=== PATIENT | female | born 1995 | race Caucasian/White ===

== ENCOUNTER 2016-09-01 13:12 | Inpatient (IN) | payer OTHER ==
[~2016-09-01] VITALS: Ht 154.9 cm; Wt 86.2 kg
[~2016-09-01 13:12] MED LIST: ALPRAZOLAM0.25 M1 PO; SERTRALINE HCL100 MG PO
--- NOTE | 2016-09-01 13:19 | NUR ---
PT TO ED C/O FEELING SUICIDAL RECENTLY. STATES PLAN WOULD BE TO TAKE A LOT OF PILLS. HOWEVER, PT STATES SHE DOESNT' HAVE ACCESS TO PILLS. DENIES HI. DENIES ETOH OR DRUGS. CALM/COOPERATIVE/TEARFUL. STATES SHE WAS HERE IN JUNE 2016 FOR THE SAME THING. PT TAKEN TO ROOM 13 BY MST.
--- NOTE | 2016-09-01 13:25 | ED PSYCHIATRIC COMPLAINT ---
History of Present Illness General Chief Complaint: Psychiatric Related Complaint Stated Complaint: + SI Source: patient, old records Exam Limitations: no limitations Vital Signs & Intake/Output Vital Signs & Intake/Output Vital Signs Date Time Temp Pulse Resp B/P Pulse O2 O2 Flow FiO2 Ox Delivery Rate 09/02 1944 98.3 92 134/71 09/02 1318 97.5 88 16 121/61 94 Room Air 09/02 1034 99.1 96 18 139/84 97 Room Air 09/02 0653 98.2 108 20 125/68 97 Room Air 09/01 2118 72 16 130/80 99 Room Air ED Intake and Output 09/02 0000 09/01 1200 Intake Total Output Total Balance Patient 190 lb Weight Allergies Coded Allergies: No Known Allergies (06/30/16) Triage Note: PT TO ED C/O FEELING SUICIDAL RECENTLY. STATES PLAN WOULD BE TO TAKE A LOT OF PILLS. HOWEVER, PT STATES SHE DOESNT' HAVE ACCESS TO PILLS. DENIES HI. DENIES ETOH OR DRUGS. CALM/COOPERATIVE/TEARFUL. STATES SHE WAS HERE IN JUNE 2016 FOR THE SAME THING. PT TAKEN TO ROOM 13 BY MST. Triage Nurses Notes Reviewed? yes Onset: Gradual Duration: 2 months Timing: recent history Severity: severe Associated Symptoms: anxiety, suicidal ideation : No Patient currently breastfeeds: No HPI: 20 year old female who presents to the ER for chief complaint of anxiety, worsening depression for the past several months. She has been on multiple different medications outpatient and has recently completed IOP which she states did not really help her. This morning she got very afraid because she had a plan to hurt herself. Plans included either overdosing on medications or putting herself in the car and turning and on and just staying in the garage. She states she's never had a specific plan with which to hurt herself. (GORDON HERNANDEZ,JENNIFER) Reconcile Medications [AVAINE] CONTROL (Reported) Cariprazine HCl (Vraylar) 1.5 MG CAPSULE 1.5 MG PO QPM DEPRESSION (Reported) Cholecalciferol (Vitamin D3) 1,000 UNIT TABLET 1 TAB PO BID SUPPLEMENT ( Reported) Citalopram Hydrobromide (Citalopram HBr) 20 MG TABLET 1 TAB PO DAILY MENTAL HEALTH (Reported) Cyanocobalamin (Vitamin B-12) 1,000 MCG TABLET 1 TAB PO DAILY SUPPLEMENT ( Reported) Ferrous Sulfate (High Potency Iron) 134 MG (27 MG) TABLET 1 TAB PO SUPPLEMENT (Reported) Gabapentin 600 MG TABLET 1 TAB PO AD UNKNOWN (Reported) Levonorgestrel-Ethin Estradiol (Aviane-28 Tablet) 0.1 MG-20 MCG TABLET 1 TAB PO DAILY BC (Reported) (BRITTANY ZHENG DO) Past History Travel History Traveled to [place] past 21 day No Medical History Any Pertinent Medical History? 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 No (JENNIFER LEYVA MD) Review of Systems Review of Systems Constitutional: Denies: chills, fever. EENTM: Reports: no symptoms. Respiratory: Denies: short of breath. Cardiovascular: Denies: chest pain. GI: Reports: no symptoms. Genitourinary: Reports: no symptoms. Musculoskeletal: Reports: no symptoms. Skin: Reports: no symptoms. Neurological/Psychological: Reports: ataxia, dementia, emotional problems. Hematologic/Endocrine: Reports: no symptoms. Immunologic/Allergic: Reports: no symptoms. All Other Systems: Reviewed and Negative (JENNIFER LEYVA MD) Physical Exam Physical Exam General Appearance: well developed/nourished, alert, awake, anxious, mild distress Head: atraumatic Eyes: Bilateral: PERRL, EOMI. Ears, Nose, Throat: normal pharynx, normal ENT inspection, hearing grossly normal Neck: normal inspection, supple Respiratory: normal breath sounds Cardiovascular: regular rate/rhythm Gastrointestinal: soft, non-tender Extremities: normal range of motion Neurological/Psychiatric: awake, agitated, anxious, tearful, depressed affect Appearance/Memory/Insight: appropriate appearance, appropriate insight Behavoir/Eye Contact/Speech: cooperative, normal speech, good eye contact Thoughts/Hallucinations: no apparent hallucination Skin: intact, normal color, warm/dry SAD PERSONS SAD PERSONS Response Value Depression/Hopelessness? yes 2 Social Support? has support 0 Total 2 SAD PERSONS Done? yes (GORDON HERNANDEZ,JENNIFER) Progress Differential Diagnosis: anxiety, depression, suicidal ideation Plan of Care: Orders Procedure Date/time Status Regular Diet 09/02 L Active Regular Diet 09/02 B Complete Vital Signs 09/02 1452 Active Inpt Psych Teach/Educate 09/02 1452 Active Nutritional Intake, Monitor 09/02 1452 Active Inpt Psych Auricular Acupunctu 09/02 1452 Active Patient Data - inpatient psych 09/02 1043 Active Admit to inpatient psych 09/02 1043 Active Admit to inpatient psych 09/02 1011 Active Continuous Observation Monitor 09/02 0925 Complete Change service to 09/02 UNK Active Vital Signs 09/02 UNK Complete Activity/Ambulation 09/02 UNK Active MISSING MEDICATION FORM 09/02 UNK Active Intake & Output 09/01 1409 Complete Current Medications Sig/Antolin Start time Last Medication Dose Stop Time Status Admin Ferrous Sulfate 325 MG DAILY 09/03 1000 AC (Feosol) Gabapentin 200 MG Q2P PRN 09/02 1115 AC (Neurontin) Aripiprazole 5 MG DAILY 09/02 1110 AC (Abilify) Diagnostic Imaging: Viewed by Me: CT Scan. Discussed w/RAD: CT Scan. Radiology Impression: PATIENT: ROGELIO FLORES PRESENT AGE: 20 PATIENT ACCOUNT NO: [id number] : 94 LOCATION: [facility] ORDERING PHYSICIAN: JENNIFER LEYVA MD SERVICE DATE: 09/01/16-1436 EXAM TYPE: CAT - CT HEAD WO IV CONTRAST EXAMINATION: CT HEAD WITHOUT CONTRAST CLINICAL INFORMATION: Sudden onset extreme depression and anxiety COMPARISON: None TECHNIQUE: Contiguous axial imaging was performed from the skull base to vertex without intravenous administration of contrast. DLP: 529.16 mGy-cm FINDINGS: There is no evidence of acute intracranial hemorrhage or territorial infarction. No abnormal mass effect or midline shift is seen. Lake to white matter differentiation is well preserved. No extra-axial fluid collections are identified. The ventricles are normal in size. There is no abnormal attenuation within the brain parenchyma. The osseous structures and soft tissues are normal. The mastoid air cells and visualized portions of the paranasal sinuses are well aerated. IMPRESSION: No acute intracranial pathology. DICTATED BY: BERNARD WELLS MD DATE/TIME DICTATED:09/01/161529 NEGATIVE CUTTER:FABIAN DATE/TIME TRANSCRIBED:09/01/16 / 1529 CONFIDENTIAL, DO NOT COPY WITHOUT APPROPRIATE AUTHORIZATION. <Electronically signed in Other Vendor System> SIGNED BY: BERNARD WELLS MD 09/01/161535 Hand-Off Endorsed To: LINDA OTERO MD Endorsed Time: 1922 Pending: consult (CRISIS ADMISSION) (JENNIFER LEYVA MD) Hand-Off Endorsed To: BRITTANY ZHENG DO Endorsed Time: 07 Pending: consult (LINDA OTERO MD) Departure Departure Disposition: STILL A PATIENT Condition: Stable Clinical Impression Primary Impression: Anxiety Secondary Impressions: Suicidal ideation Referrals: ABHIJEET HENRANDEZ,DANIELLE Fox (PCP/Family) Departure Forms: Customer Survey General Discharge Information (JENNIFER LEYVA MD) Departure Comments 09/02/16 The patient was signed out to me by Dr. Otero. She was admitted to Inpatient Psychiatry for depression. Psych Admission Note Psychiatric Admission: I have seen and evaluated ROGELIO FLORES. I have also reviewed all the pertinent lab results and diagnostic results. ROGELIO FLORES will be admitted to our inpatient Psychiatric unit for treatment and care. (BRITTANY ZHENG DO)
--- NOTE | 2016-09-01 13:43 | NUR ---
URINE TRIO SENT TO LAB
--- NOTE | 2016-09-01 14:13 | NUR ---
ALERT, TEARY, WHEN QUESTIONED, STATES SHE IS UNDER A LOT OF STRESS AT SCHOOL, GRADUATES IN NOVEMBER, BUT IS FEELING TOO DEPRESSED TO DO HER SCHOOLWORK. HAS BEEN ON DIFFERENT ANT-DEPRESSANTS AND WAS SEEING ESTIVEN BARONE APRN ([facility]) AND WAS DC'D ON 08/15. STATES SHE HAS FRIENDS AT SCHOOL AND HAS A SUPPORTIVE FAMILY.
[2016-09-01] MEDS ORDERED: VRAYLAR1.5 MG PO (14:54)
[2016-09-01] MEDS ORDERED: CITALOPRAM HBR20 MG PO (14:54)
[2016-09-01] MEDS ORDERED: VITAMIN D31000 UNI2 PO (14:55)
[2016-09-01] MEDS ORDERED: GABAPENTIN600 M1 PO (14:55)
[2016-09-01] MEDS ORDERED: VITAMIN B-121000 MC3 PO (14:56)
[2016-09-01] MEDS ORDERED: AVIANE-28 TABL1 EACH PO (14:56)
[2016-09-01] MEDS ORDERED: HIGH POTENCY I134 MG PO (14:56)
--- NOTE | 2016-09-01 15:12 | NUR ---
BLOOD DRAWN AND SENT TO LAB. SST AND LAV.
[2016-09-01 15:16] LABS: ABSOLUTE BASOPHIL COUNT 0 /CUMM (0.0-0.2); ABSOLUTE EOSINOPHIL COUNT 0 /CUMM (0.0-0.7); ABSOLUTE GRANULOCYTE CT 4.3 /CUMM (1.4-6.5); ABSOLUTE LYMPH COUNT 1.3 /CUMM (1.2-3.4); ABSOLUTE MONOCYTE COUNT 0.3 /CUMM (0.10-0.60); BASOPHIL % 0.2 % (0.0-2.0); EOSINOPHIL % 0.4 % (0-5); GRANULOCYTE % 71.8 % (42.2-75.2); HEMATOCRIT 41.8 % (37-47); MEAN CORPUSCULAR HGB 27.5 PG (27.0-31.0); MEAN CORPUSCULAR HGB CONC 33.5 G/DL (33.0-37.0); MEAN CORPUSCULAR VOLUME 82.2 FL (81.0-99.0); PLATELET COUNT 242 /CUMM (130-400); RBC DISTRIBUTION WIDTH 13.6 % (11.5-14.5); RED BLOOD CELL CT 5.09 /CUMM (4.20-5.40)
--- NOTE | 2016-09-01 15:36 | CT SCAN REPORT ---
EXAMINATION: CT HEAD WITHOUT CONTRAST CLINICAL INFORMATION: Sudden onset extreme depression and anxiety COMPARISON: None TECHNIQUE: Contiguous axial imaging was performed from the skull base to vertex without intravenous administration of contrast. DLP: 529.16 mGy-cm FINDINGS: There is no evidence of acute intracranial hemorrhage or territorial infarction. No abnormal mass effect or midline shift is seen. Lake to white matter differentiation is well preserved. No extra-axial fluid collections are identified. The ventricles are normal in size. There is no abnormal attenuation within the brain parenchyma. The osseous structures and soft tissues are normal. The mastoid air cells and visualized portions of the paranasal sinuses are well aerated. IMPRESSION: No acute intracranial pathology.
--- NOTE | 2016-09-01 18:10 | NUR ---
PT INFORMED OF TEST RESULTS AND EMOTIONAL SUPPORT PROVIDED. PT PRESENTS WITH DOWNCAST AND DYSPHORIC AFFECT, BUT MODERATE RANGE OF EMOTION AND PLEASANT AND COOPERATIVE WITH STAFF
--- NOTE | 2016-09-01 19:00 | ED PSYCH CRISIS CONSULTATION ---
Crisis Consult Basic Assessment Date of Consult: 09/01/16 Responsible Person/Accompanied By: Mother is currently working as RN in ED Insurance Authorization: Insurance #1: Insurance name: NHUNG Phone number: Policy number: [id number] Group number: [id number] Authorization number: ED Provider: Patient's ED Provider: JENNIFER LEYVA MD Primary Care Physician: Patient's PCP: DANIELLE JHA MD PCP's Current Psychiatrist: ABIOLA Pike Chief Complaint: Psychiatric Related Complaint Patient's Quote: " I was feeling a little suicidal today." Present Illness: The patient is a 20 year old, single, female presenting to the ED with increased depressed mood and +SI with 2 plans. The patient was calm, cooperative and was crying throughout the evaluation. She notes that since being seen in the ED in June, things have been getting worse. She has been feeling more depressed, anxious, helpless and scared. She notes that her appetite has been up and down and that she has been sleeping more. She notes that she has been feeling suicidal and today had thoughts, to either take an overdose of pills or sit in the running car in the garage. She states that she does not want to act on these thoughts, however was fearful that she would act on them. She states that she has been "very afraid" lately, primarily feeling, as though, she would kill herself, if she was not in company of her parents. She is currently seeing Kevon Pike APRN at [facility] and attending groups. She has only seen Kevon one time and missed her last group session. She states that she has been looking for a private therapist and psychiatrist, however states she has been having difficulty. She denies any current AH / VH / HI. She states that school is her primary stressor, she is in her last semester of her bachelors degree. She is unable to articulate any other triggers for her continuing increase in symptoms. She resides at home with her parents and has cut back working, to about 4 hours a week. She is in agreement that an inpatient admission would be helpful at this point. DUNIA spoke to the patients mother, Lavonne Barcenas, who states that the patient has continuingly been decompensating, since her presentation in June. Lavonne notes that the patient has stopped wearing makeup, dressing up, noting she has been wearing the same clothes for days and only showers, after she is pushed to do so. Lavonne notes that the patient spends a lot of time crying and stating that she is "scared." Lavonne states that she has to "force feed," her most of the time. Lavonne finds that the patient has not had consistent treatment and believes that her medications have been changed so frequently, that it is difficult to assess whether or not they are working. Lavonne notes that the patients symptoms have been so severe that she has been driving her to class and work and sitting outside in the car, as it is the only way the patient feels safe. Lavonne states that the patient has been making hopeless statements and that this AM she made suicidal statements. Lavonne believes that an inpatient admission would be helpful at this time. Patient's Address: [address] [place] [address] Other Phone Number: Who Do You Live With? Mother (and father) Family/Informants Interviewed: Mother- Lavonne Barcenas Allergies - Coded Allergies: No Known Allergies (06/30/16) Current Medications - Scheduled Medications Alprazolam 0.25 MG TABLET 1 TAB PO DAILY NEEDED ANXIETY #15 (Reported) Entered as Reported by SUZY CASTILLO on 06/30/16 1805 Cholecalciferol (Vitamin D3) 1,000 UNIT TABLET 1 TAB PO BID SUPPLEMENT ( Reported) Entered as Reported by CASANDRA WORRELL on 09/01/16 1455 Citalopram Hydrobromide (Citalopram HBr) 20 MG TABLET 1 TAB PO DAILY MENTAL HEALTH #14 (Reported) Entered as Reported by CASANDRA WORRELL on 09/01/16 1454 Cyanocobalamin (Vitamin B-12) 1,000 MCG TABLET 1 TAB PO DAILY SUPPLEMENT ( Reported) Entered as Reported by CASANDRA WORRELL on 09/01/16 1456 Gabapentin 600 MG TABLET 1 TAB PO AD UNKNOWN #42 (Reported) Entered as Reported by CASANDRA WORRELL on 09/01/16 1455 Levonorgestrel-Ethin Estradiol (Aviane-28 Tablet) 0.1 MG-20 MCG TABLET 1 TAB PO DAILY BC (Reported) Entered as Reported by CASANDRA WORRELL on 09/01/16 1456 Sertraline HCl 100 MG TABLET 1 TAB PO DAILY DEPRESSION #30 (Reported) Entered as Reported by SUZY CASTILLO on 06/30/16 1806 Miscellaneous Medications Cariprazine HCl (Vraylar) 1.5 MG CAPSULE MENTAL HEALTH (Reported) Entered as Reported by CASANDRA WORRELL on 09/01/16 1454 Ferrous Sulfate (High Potency Iron) 134 MG (27 MG) TABLET 1 TAB PO SUPPLEMENT (Reported) Entered as Reported by CASANDRA WORRELL on 09/01/16 1456 Laboratory Results: Laboratory Tests 09/01/16 1509: Anion Gap 11, Estimated GFR > 60, BUN/Creatinine Ratio 15.7, Glucose 124 H, Calcium 9.8, Total Bilirubin 0.5, AST 21, ALT 30, Alkaline Phosphatase 56, Total Protein 7.5, Albumin 4.3, Globulin 3.2, Albumin/Globulin Ratio 1.3, 25-OH Vitamin D Total 11.0 L, CBC w Diff NO MAN DIFF REQ, RBC 5.09, MCV 82.2, MCH 27.5, RDW 13.6, MPV 9.0, Gran % 71.8, Lymphocytes % 22.2, Monocytes % 5.4, Eosinophils % 0.4, Basophils % 0.2, Absolute Granulocytes 4.3, Absolute Lymphocytes 1.3, Absolute Monocytes 0.3, Absolute Eosinophils 0, Absolute Basophils 0, PUBS MCHC 33.5, Serum Alcohol < 10.0 09/01/16 1335: Urine Opiates Screen < 100.00, Methadone Screen 53, Barbiturate Screen < 60, Ur Phencyclidine Scrn < 6.00, Amphetamines Screen < 100, U Benzodiazepines Scrn < 85, Urine Cocaine Screen < 50, Urine Cannabis Screen < 5.00, Urine Test NEGATIVE (ANISHA TREVIZO LCSW) Past History Past Medical History Neurological: NONE EENT: NONE Cardiovascular: NONE Respiratory: NONE Gastrointestinal: NONE Hepatic: NONE Renal: NONE Musculoskeletal: NONE Psychiatric: NONE Endocrine: NONE Blood Disorders: NONE Cancer(s): NONE 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 The patient has a supportive family. Physical Limitations (Interventions): None noted Psychiatric Treatment History Psych Treatment Psychiatric Treatment Yes Inpatient Treatment No Outpatient Treatment Yes Location of Treatment [facility], [facility] and prior to that she was seeing Dr. Zepeda Reason for Treatment Depression and anxiety Dates of Treatment Dr. Zepeda from 2008- 2015. [place] 06/2016- current Response to Treatment The patient and her mother believe that despite treatment the patient is decompensating. Diagnosis by History: Unclear Substance Use/Abuse History Drug Use/Abuse Substances Used/Abused No First Use N/A Last Used N/A How much used/taken N/A How often N/A For how long N/A Route of use N/A Substance Abuse Treatment Substance Abuse Treatment Past Substance Abuse [place] No Inpatient Treatment No Outpatient Treatment No Location of Treatment N/A Reason for Treatment N/A Dates of Treatment N/A Response to Treatment N/A Comments: N/A (ANISHA TREVIZO LCSW) Current Mental Status Mental Status Orientation: Person, Place, Situation Affect: Anxious (Crying), Depressed, Flat Speech: WNL Neuro-vegetative: Anhedonia, Appetite Decreased, Helpless, Sleep Disturbance Appearance Appearance- Dress/Hygiene: The patient was sitting in bed, in hospital attire, neat, clean and crying during the evaluation. Behaviors Thought Process: WNL Thought Content: WNL Memory: WNL Insight: WNL SI/HI Risk Assessment Past Suicidal Ideation/Attempts No Current Suicidal Ideation/Att Yes Past Homicidal Ideation/Att: No Current Homicidal Ideation/Attempts No Degree of Intent: Plan, States Intent, The patient reports that she has been having suicidal ideations and today started thinking about taking an overdose or sitting in the running car in the garage. Danger To: Self Gravely Disabled: N/A Risk Factors: age (under 24/over 65), high anxiety/distress Lethality Ratin PTSD Checklist PTSD Done? patient declined (Denies trauma or abuse hx.) ED Management Sitter: Yes Restraints: No (ANISHA TREVIZO LCSW) DSM5/PS Stressors/Medical Prob Diagnosis' (DSM 5, Stressors, Medical): F32.9 Unspecified Depressive Disorder and F41.9 Unspecified Anxiety Disorder Current GAF: 25 Comments: N/A (NAISHA TREVIZO LCSW) Departure Disposition Psych Medical Clearance Date: 09/01/16 Medically Cleared at: 1800 Time Started: 1800 Time Ended: 190 Psychiatrist Consulted: Shad Daniel MD Date Disposition Established: 09/01/16 Time Disposition Established: 1899 Plan for Disposition - Modality: Inpatient Psychiatry Facility: [facility] vs. Bed search Contact: N/A Telephone: N/A Rationale for Disposition: The patient presents to the ED with increased symptoms of depression. She reports feeling depressed, anxious, helpless, with decreased ADLS, increased sleep, decreased appetite. The patient reports that she has been feeling suicidal and started having thoughts to take an overdose or sit in the garage in a running car, this AM. Case discussed with Dr. Daniel and he finds the patient to be an acute risk to self and in need of an inaptient admission at this time. There are no beds on [facility] and therefore the patient will be a holdover for bed search vs. admission to [facility] in the AM. Type of IP Admission: Voluntary Additional Instructions: N/A Referrals BAHIJEET HERNANDEZ,DANIELLE Fox (PCP/Family) (ANISHA TREVIZO LCSW) Disposition Psych Medical Clearance Date: 09/02/16 Medically Cleared at: 0800 Time Started: 0800 Time Ended: 824 Psychiatrist Consulted: Deirdre Braga MD Disposition Established: 09/02/16 Time Disposition Established: 824 Plan for Disposition - Modality: Inpatient Psychiatry Facility: [facility] Rationale for Disposition: safety and stabilization Type of IP Admission: Voluntary (JR RENTERIA LCSW) Addendum Addendum Crisis re-evaluated pt this morning. Pt presents as tearful and depressed. Pt expresses that she is feeling anxious about being admitted for inpt psych tx because she does not know what to expect. Provided pt with support and reassurance. Case was reviewed with Dr. Braga of psychiatry and pt will be admitted to [facility]. (JR RENTERIA LCSW)
--- NOTE | 2016-09-01 21:34 | NUR ---
PT RESTING IN ROOM IN VISUAL RANGE OF SITTERS. PT RESTING WATCHING TV, BUT DOES ENDORSE CONTINUED ANXIETY. COOPERATIVE AND PLEASANT, BUT APPEARS RESTLESS AND NERVOUS. EMOTIONAL COMFORT PROVIDED AND OFFERED MEDICATION FOR SYMPTOM MANAGEMENT. MD AWARE OF ANXIETY LEVEL AND PT MEDICATED WITH ATIVAN PER ORDER, WHICH SHE REPORTS HAS HELPED HER MOST IN THE PAST. LIGHTS DIMMED FOR COMFORT. WILL CONT TO MONITOR
--- NOTE | 2016-09-01 22:28 | NUR ---
PT SLEEPING, ATIVAN EFFECTIVE FOR MANAGEMENT OF ANXIETY AT THIS TIME. SITTERS REMAIN PRESENT FOR SAFETY MONITORING
--- NOTE | 2016-09-01 22:52 | NUR ---
PT MEDICATED WITH MOTRIN PER ORDER FOR NEW ONSET HEADACHE. MOTHER AT BEDSIDE FOR EMOTIONAL SUPPORT. REPORTS SLIGHT RELIEF IN ANXIETY
--- NOTE | 2016-09-02 00:14 | NUR ---
PATIENT SLEEPING W/ MOTHER SLEEPING AT BEDSIDE. REGULAR RESPIRATIONS NOTED. LIGHTS DIMMED. SITTER REMAINS W/ PATIENT.
--- NOTE | 2016-09-02 02:01 | NUR ---
PATIENT CONTINUES TO SLEEP AT THIS TIME W/ REGULAR RESPIRATIONS NOTED. MOM REMAINS AT BEDSIDE. SITTER IN DOORWAY.
--- NOTE | 2016-09-02 04:10 | NUR ---
PATIENT CONTINUES TO SLEEP W/ REGULAR RESPIRATIONS NOTED. SITTER REMAINS W/ PATIENT. LIGHTS DIMMED. PATIENT SELF TURNING FOR POSITION CHANGES.
--- NOTE | 2016-09-02 06:38 | NUR ---
PATIENT CONTINUES TO SLEEP AT THIS TIME W/ REGULAR RESPIRATINS NOTED. SITTER REMAINS W/ PATIENT. LIGHTS DIMMED.
--- NOTE | 2016-09-02 07:41 | NUR ---
ASSUMED CARE OF PT WHO IS AWAKE AND ALERT. SITTING QUIETLY ON BED. PT PREVIOUSLY ATE BREAKFAST TRAY. SITTER REMAINS AT DOORWAY
--- NOTE | 2016-09-02 08:30 | NUR ---
PT IS NOW VERY ANXIOUS. DR ZHENG ASKED TO EVAL PT
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
--- NOTE | 2016-09-02 09:06 | NUR ---
MEDICATED WITH ATIAN PER EMAR. Informed waiting has been performed.
--- NOTE | 2016-09-02 10:44 | SOCIAL WORKER SOCIAL HX PSYCH ---
Social History Basic Assessment Insurance Authorization: Insurance #1: Insurance name: NHUNG Phone number: Policy number: [id number] Group number: [id number] Authorization number: Curr Source of Income/Entitlements: employment Primary Care Physician: Patient's PCP: DANIELLE JHA MD PCP's Present Problem: The patient is a 20 year old, single, female presenting to the ED with increased depressed mood and +SI with 2 plans. The patient was calm, cooperative and was crying throughout the evaluation. She notes that since being seen in the ED in June, things have been getting worse. She has been feeling more depressed, anxious, helpless and scared. She notes that her appetite has been up and down and that she has been sleeping more. She notes that she has been feeling suicidal and today had thoughts, to either take an overdose of pills or sit in the running car in the garage. She states that she does not want to act on these thoughts, however was fearful that she would act on them. She states that she has been "very afraid" lately, primarily feeling, as though, she would kill herself, if she was not in company of her parents. She is currently seeing Kevon Pike APRN at [facility] and attending groups. She has only seen Kevon one time and missed her last group session. She states that she has been looking for a private therapist and psychiatrist, however states she has been having difficulty. She denies any current AH / VH / HI. She states that school is her primary stressor, she is in her last semester of her bachelors degree. She is unable to articulate any other triggers for her continuing increase in symptoms. She resides at home with her parents and has cut back working, to about 4 hours a week. She is in agreement that an inpatient admission would be helpful at this point. DUNIA spoke to the patients mother, Lavonne Barcenas, who states that the patient has continuingly been decompensating, since her presentation in June. Lavonne notes that the patient has stopped wearing makeup, dressing up, noting she has been wearing the same clothes for days and only showers, after she is pushed to do so. Lavonne notes that the patient spends a lot of time crying and stating that she is "scared." Lavonne states that she has to "force feed," her most of the time. Lavonne finds that the patient has not had consistent treatment and believes that her medications have been changed so frequently, that it is difficult to assess whether or not they are working. Lavonne notes that the patients symptoms have been so severe that she has been driving her to class and work and sitting outside in the car, as it is the only way the patient feels safe. Lavonne states that the patient has been making hopeless statements and that this AM she made suicidal statements. Lavonne believes that an inpatient admission would be helpful at this time. ANISHA DALYLLO [facility] [employer]> 09/01/16 Crisis re-evaluated pt this morning. Pt presents as tearful and depressed. Pt expresses that she is feeling anxious about being admitted for inpt psych tx because she does not know what to expect. Provided pt with support and reassurance. Case was reviewed with Dr. Braga of psychiatry and pt will be admitted to [facility]. JR PATELNORMA [facility]> 09/02/16 0837 Primary Language? Pakistani Language(s) Spoken At Home: Pakistani Living Situation Other Living Arrangement: lives with her Mom and Dad Feel Safe Where You Are Living Yes Feel Safe in Relationships? Yes Allergies - Coded Allergies: No Known Allergies (06/30/16) Current Medications - Scheduled Medications Alprazolam 0.25 MG TABLET 1 TAB PO DAILY NEEDED ANXIETY #15 (Reported) Entered as Reported by SUZY CASTILLO on 06/30/16 1805 Cholecalciferol (Vitamin D3) 1,000 UNIT TABLET 1 TAB PO BID SUPPLEMENT ( Reported) Entered as Reported by CASANDRA WORRELL on 09/01/16 1455 Citalopram Hydrobromide (Citalopram HBr) 20 MG TABLET 1 TAB PO DAILY MENTAL HEALTH #14 (Reported) Entered as Reported by CASANDRA WORRELL on 09/01/16 1454 Cyanocobalamin (Vitamin B-12) 1,000 MCG TABLET 1 TAB PO DAILY SUPPLEMENT ( Reported) Entered as Reported by CASANDRA WORRELL on 09/01/16 1456 Gabapentin 600 MG TABLET 1 TAB PO AD UNKNOWN #42 (Reported) Entered as Reported by CASADNRA WORRELL on 09/01/16 1455 Levonorgestrel-Ethin Estradiol (Aviane-28 Tablet) 0.1 MG-20 MCG TABLET 1 TAB PO DAILY BC (Reported) Entered as Reported by CASANDRA WORRELL on 09/01/16 1456 Sertraline HCl 100 MG TABLET 1 TAB PO DAILY DEPRESSION #30 (Reported) Entered as Reported by SUZY CASTILLO on 06/30/16 1806 Miscellaneous Medications Cariprazine HCl (Vraylar) 1.5 MG CAPSULE MENTAL HEALTH (Reported) Entered as Reported by CASANDRA WORRELL on 09/01/16 1454 Ferrous Sulfate (High Potency Iron) 134 MG (27 MG) TABLET 1 TAB PO SUPPLEMENT (Reported) Entered as Reported by CASANDRA WORRELL on 09/01/16 1456 Past History Past Medical History Neurological: NONE EENT: NONE Cardiovascular: NONE Respiratory: NONE Gastrointestinal: NONE Hepatic: NONE Renal: NONE Musculoskeletal: NONE Psychiatric: NONE Endocrine: NONE Blood Disorders: NONE Cancer(s): NONE 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 No Mother's Age (Current/): 57 Relationship w/Mother: close supportive Father's Age (Current/): 53 Relationship w/Father: "good" Any Sibling(s)? Yes Sibling's Gender(s)/Age(s): male Sibling 1: Relationship w/Sibling(s): "good" Relationship w/Friends: "good" Family Psych/Sub Abuse/Add Hx: father has anxiety and 27yo brother poly- substance clean1 year and 2 months Number of Pregnancies: 0 Number of Miscarriages: 0 Number of Abortions: 0 Abuse/Trauma History Trauma History/Current Trauma: Denies Legal History Have you ever been arrested No Number of Arrests: 0 Hx of Juvenile Legal Charges? No Hx of Adult Legal Charges? No Child Protective Serv Involvmnt none Payroll Processor n/a Psychosocial History Primary Support System: father, mother, sibling(s) Strengths/Capabilities: The patient appears to have good insight into her need for treatment and is motivated to attend. The patient has a supportive family. Weaknesses: difficulty with coping skills Physical Limitations (Interventions): None noted Last Physical: Jul 2013 History of Seizures? No History of Blackouts? No ADL Limitations: none reported Diamond/Social/Peer Relations Reports that she has many suppportive friends Meaningful Activities: I don't have any. I have been depressed for for a long time. Childhood Yarsani: no mandaeism stated Current Moravian Affiliation: no mandaeism stated Is Spirituality Important to You? not really Patient's Ethnicity: Malagasy Cultural/Ethnic Issues: none reported Are There Developmental Issues? No Milestones Achieved: fine motor, gross motor Psychiatric Treatment History Psych Treatment Inpatient Treatment No Outpatient Treatment Yes Location of Treatment [facility] and prior to that she was seeing Dr. Zepeda Reason for Treatment Depression and anxiety Dates of Treatment Dr. Zepeda from 2008- 2015. Lorida 06/2016- current Response to Treatment The patient and her mother believe that despite treatment the patient is decompensating. Precipitating Factors: The patient is a 20 year old, single, female presenting to the ED with increased depressed mood and +SI with 2 plans. The patient was calm, cooperative and was crying throughout the evaluation. She notes that since being seen in the ED in June, things have been getting worse. She has been feeling more depressed, anxious, helpless and scared. She notes that her appetite has been up and down and that she has been sleeping more. She notes that she has been feeling suicidal and today had thoughts, to either take an overdose of pills or sit in the running car in the garage. She states that she does not want to act on these thoughts, however was fearful that she would act on them. She states that she has been "very afraid" lately, primarily feeling, as though, she would kill herself, if she was not in company of her parents. She is currently seeing Kevon Pike APRN at [facility] and attending groups. She has only seen Kevon one time and missed her last group session. She states that she has been looking for a private therapist and psychiatrist, however states she has been having difficulty. She denies any current AH / VH / HI. She states that school is her primary stressor, she is in her last semester of her bachelors degree. She is unable to articulate any other triggers for her continuing increase in symptoms. She resides at home with her parents and has cut back working, to about 4 hours a week. She is in agreement that an inpatient admission would be helpful at this point. DUNIA spoke to the patients mother, Lavonne Barcenas, who states that the patient has continuingly been decompensating, since her presentation in June. Lavonne notes that the patient has stopped wearing makeup, dressing up, noting she has been wearing the same clothes for days and only showers, after she is pushed to do so. Lavonne notes that the patient spends a lot of time crying and stating that she is "scared." Lavonne states that she has to "force feed," her most of the time. Lavonne finds that the patient has not had consistent treatment and believes that her medications have been changed so frequently, that it is difficult to assess whether or not they are working. Lavonne notes that the patients symptoms have been so severe that she has been driving her to class and work and sitting outside in the car, as it is the only way the patient feels safe. Lavonne states that the patient has been making hopeless statements and that this AM she made suicidal statements. Lavonne believes that an inpatient admission would be helpful at this time. ANISHA TREVIZO [facility] [employer] [employer]> 09/01/16 Crisis re-evaluated pt this morning. Pt presents as tearful and depressed. Pt expresses that she is feeling anxious about being admitted for inpt psych tx because she does not know what to expect. Provided pt with support and reassurance. Case was reviewed with Dr. Braga of psychiatry and pt will be admitted to [facility]. JR RENTERIA [facility] [employer] [employer]> 09/02/16 0837 Current Search Consultant: Flaquito lopez pt Treatment of Prior Episodes: no inpt psych tx hx Diagnosis: Unclear Psychodynamic Issues: none reported Risk Factors: age (under 24/over 65), high anxiety/distress Substance Use/Abuse History Drug Use/Abuse Substance Used/Abused No History First Use N/A Last Used N/A How much used/taken N/A How often N/A For how long N/A Route of use N/A Substance Abuse Treatment Substance Abuse Treatment Inpatient Treatment No Outpatient Treatment No Location of Treatment N/A Reason for Treatment N/A Dates of Treatment N/A Response to Treatment N/A Sexual History Sexually Active No Education History Highest Level of Education: some college Highest Grade Completed: will graduate in November Vocational Year Completed: 0 Number of College Years: 4 College Degree/Major: Psychology Preferred Learning Style: visual, auditory, experiential HX of Learning Difficulties: None reported Barriers to Learning: None reported Special Communication Needs: None reported Employment History Employment Employed 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 of Jobs in Last 5 Years: 3 Attendance: Normal Performance: Good Comments: currently took a leave of abscence due to her depression History Have You Been in The ? No Current Mental Status Mental Status Orientation: Person, Place, Situation Affect: Anxious (Crying), Depressed, Flat Speech: WNL Neuro-vegetative: Anhedonia, Appetite Decreased, Helpless, Sleep Disturbance Appearance Appearance- Dress/Hygiene: The patient was sitting in bed, in hospital attire, neat, clean and crying during the evaluation. Behaviors Thought Process: WNL Thought Content: WNL Memory: WNL Insight: WNL SI/HI Risk Assessment Past Suicidal Ideation/Attempts No Current Suicidal Ideation/Att Yes Past Homicidal Ideation/Att: No Current Homicidal Ideation/Attempts No Degree of Intent: Plan, States Intent, The patient reports that she has been having suicidal ideations and today started thinking about taking an overdose or sitting in the running car in the garage. Danger To: Self Gravely Disabled: N/A Lethality Ratin - Conclusion and Recommendations for treatment - and discharge planning Summary: The patient is a 20 year old, single, female presenting to the ED with increased depressed mood and +SI with 2 plans. The patient was calm, cooperative and was crying throughout the evaluation. She notes that since being seen in the ED in June, things have been getting worse. She has been feeling more depressed, anxious, helpless and scared. She notes that her appetite has been up and down and that she has been sleeping more. She notes that she has been feeling suicidal and today had thoughts, to either take an overdose of pills or sit in the running car in the garage. She states that she does not want to act on these thoughts, however was fearful that she would act on them. She states that she has been "very afraid" lately, primarily feeling, as though, she would kill herself, if she was not in company of her parents. She is currently seeing Kevon Pike APRN at [facility] and attending groups. She has only seen Kevon one time and missed her last group session. She states that she has been looking for a private therapist and psychiatrist, however states she has been having difficulty. She denies any current AH / VH / HI. She states that school is her primary stressor, she is in her last semester of her bachelors degree. She is unable to articulate any other triggers for her continuing increase in symptoms. She resides at home with her parents and has cut back working, to about 4 hours a week. She is in agreement that an inpatient admission would be helpful at this point. DUNIA spoke to the patients mother, Lavonne Barcenas, who states that the patient has continuingly been decompensating, since her presentation in June. Lavonne notes that the patient has stopped wearing makeup, dressing up, noting she has been wearing the same clothes for days and only showers, after she is pushed to do so. Lavonne notes that the patient spends a lot of time crying and stating that she is "scared." Lavonne states that she has to "force feed," her most of the time. Lavonne finds that the patient has not had consistent treatment and believes that her medications have been changed so frequently, that it is difficult to assess whether or not they are working. Lavonne notes that the patients symptoms have been so severe that she has been driving her to class and work and sitting outside in the car, as it is the only way the patient feels safe. Lavonne states that the patient has been making hopeless statements and that this AM she made suicidal statements. Lavonne believes that an inpatient admission would be helpful at this time. ANISHA TREVIZO [facility] [employer]> 09/01/16 Crisis re-evaluated pt this morning. Pt presents as tearful and depressed. Pt expresses that she is feeling anxious about being admitted for inpt psych tx because she does not know what to expect. Provided pt with support and reassurance. Case was reviewed with Dr. Braga of psychiatry and pt will be admitted to [facility]. JR RENTERIA [facility] [employer]> 09/02/16 0837
--- NOTE | 2016-09-02 11:43 | NUR ---
PT MEDICATED WITH VITAMIN D, VITAMIN B12 AND CELEXA 20MG. PT REFUSED ABILIFY SHE IS NO LONGER PRESCRIBED IT. PT ALSO REFUSED ONE STEP, IT IS NOT HER DAILY CONTROL PILL. PT STATES HER BCP IS "KENDRA". PER PT, MOTHER HAS THIS MED AND [facility], HER [facility] MED.
--- NOTE | 2016-09-02 13:18 | NUR ---
PT CALM AND COOPERATIVE, WATCHING TV IN ROOM 13. PT WILL BE TRANSFERRING TO [facility]
--- NOTE | 2016-09-02 16:38 | NUR ---
PATIENT ARRIVED TO THE UNIT AROUND 3PM. SHE IS ALERT AND ORIENTED x4, VSS, DENIES SI/HI/AVH AT THIS TIME. PRESENTS WITH A FLAT AFFECT AND DYSPHORIC MOOD BUT PLEASANT, CALM AND COOPERATIVE WITH ADMISSION ASSESSMENT. PATIENT REPORTED SHE WAS RECENTLY DIAGNOSED WITH MAJOR DEPRESSIVE DISORDER AND HER DEPRESSION AND ANXIETY HAVE INCREASED TREMENDOUSLY IN THE LAST FEW MONTHS. COMPLIANT WITH MEDICATIONS. REPORTS NOT ATTENDING TO ADL'S, VERY POOR APPETITE AND SLEEPING A LOT. PATIENT TOOK SOME TIME OFF FROM WORK BECAUSE HER ENERGY LEVEL IS VERY LOW AND HER DEPRESSION GOT WORSE. DENIES ANY OTHER MEDICAL PROBLEMS. DENIES ANY SKIN BREAKDOWN. PATIENT STATED SHE FEELS SAFE ON THE UNIT AND SHE IS ABLE TO COME TO STAFF IF SHE FEELS UNSAFE. Q15 MINUTES CHECKS MAINATINED FOR SAFETY AND OBSERVATION. WILL CONTINUE TO MONITOR AND OFFER SUPPORT NEEDED.
[2016-09-02] MEDS ORDERED: VRAYLAR1.5 MG PO (17:03)
[2016-09-02] MEDS ORDERED: [UNRECOGNIZED DRUG - OTHER] (17:06)
[2016-09-02 19:44] VITALS: BP 134/71
--- NOTE | 2016-09-02 20:15 | History & Physical ---
General Information and HPI MD Statement: I have seen and personally examined ROGELIO FLORES and documented this H&P. The patient is a 20 year old F who presented with a patient stated chief complaint of [medical evaluatoin]. Source of Information: patient Exam Limitations: no limitations History of Present Illness: 20Y O W F came to the ER for anxiety and worsening depression. She had suicidal ideation and plan so was admitted to [facility]. No current medical complaints. Allergies/Medications Allergies: Coded Allergies: No Known Allergies (06/30/16) Home Med list [AVAINE] CONTROL (Reported) Cariprazine HCl (Vraylar) 1.5 MG CAPSULE 1.5 MG PO QPM DEPRESSION (Reported) Cholecalciferol (Vitamin D3) 1,000 UNIT TABLET 1 TAB PO BID SUPPLEMENT ( Reported) Citalopram Hydrobromide (Citalopram HBr) 20 MG TABLET 1 TAB PO DAILY MENTAL HEALTH (Reported) Cyanocobalamin (Vitamin B-12) 1,000 MCG TABLET 1 TAB PO DAILY SUPPLEMENT ( Reported) Ferrous Sulfate (High Potency Iron) 134 MG (27 MG) TABLET 1 TAB PO SUPPLEMENT (Reported) Gabapentin 600 MG TABLET 1 TAB PO AD UNKNOWN (Reported) Levonorgestrel-Ethin Estradiol (Aviane-28 Tablet) 0.1 MG-20 MCG TABLET 1 TAB PO DAILY BC (Reported) Compliance With Home Meds: GOOD Past History Travel History Traveled to [place] past 21 day No Medical History Neurological: NONE EENT: NONE Cardiovascular: NONE Respiratory: NONE Gastrointestinal: NONE Hepatic: NONE Renal: NONE Musculoskeletal: NONE Psychiatric: anxiety, depression Endocrine: NONE Blood Disorders: NONE Cancer(s): NONE 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 Psychosocial History Where do you live? Home Services at Home: None Primary Language: Bulgarian Smoking Status: Never Smoked ETOH Use: denies use Illicit Drug Use: denies illicit drug use Functional Ability ADLs Independent: dressing, eating, toileting, bathing. Ambulation: independent IADLs Independent: shopping, housework, finances, food prep, telephone, transportation , medication admin. 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 EENTM: Reports: no symptoms. Cardiovascular: Reports: no symptoms, palpitations. Respiratory: Reports: no symptoms. GI: Reports: no symptoms, nausea. Genitourinary: Reports: no symptoms. Musculoskeletal: Reports: no symptoms. Skin: Reports: no symptoms. Neurological/Psychological: Reports: anxiety, depressed. Denies: ataxia, cognitive dysfunction, dementia, headache, numbness, paresthesia, tremors. Hematologic/Endocrine: Reports: no symptoms. Immunologic/Allergic: Reports: no symptoms. All Other Systems: Reviewed and Negative Post Menopausal: No Exam & Diagnostic Data Last 24 Hrs of Vital Signs/I&O Vital Signs Date Time Temp Pulse Resp B/P Pulse O2 O2 Flow FiO2 Ox Delivery Rate 09/02 1944 98.3 92 134/71 09/02 1318 97.5 88 16 121/61 94 Room Air 09/02 1034 99.1 96 18 139/84 97 Room Air 09/02 0653 98.2 108 20 125/68 97 Room Air 09/01 2118 72 16 130/80 99 Room Air Intake & Output 09/02 0000 09/02 0800 09/02 1600 Intake Total Output Total Balance Patient 86.183 kg Weight Physical Exam General Appearance Alert, Oriented X3, Cooperative, No Acute Distress Skin No Rashes, No Breakdown HEENT Atraumatic, PERRLA, EOMI Neck Supple, No JVD, No thryomegaly Lymphatic Cervical nl Cardiovascular Regular Rate, Normal S1, Normal S2, No Murmurs Lungs Clear to Auscultation, Normal Air Movement Abdomen Normal Bowel Sounds, Soft, No Tenderness, No Hepatospenomegaly, No Masses Neurological Exam Findings: Normal Gait, Normal Speech, Strength at 5/5 X4 Ext, Normal Tone, Sensation Intact, Cranial Nerves 3-12 NL, Reflexes 2+ Cranial Nerves II through XII: CN intact no deficit Extremities No Clubbing, No Cyanosis, No Edema, Normal Pulses, No Tenderness/ Swelling Vascular Normal Pulses, Pulses Symmetrical Assessment/Plan Assessment: depression/ SI : still tearful and anxious, Agree with psychiatry plan As Ranked By This Provider Problem List: 1. Anxiety 2. Suicidal ideation Miscellaneous Miscellaneous Documentation Attending Case Discussed With: ANGELINA REYES MD Primary Care Physician: DANIELLE JHA MD Patient sees these Specialists n/a Level of Patient Care: TANIKA Ohara
--- NOTE | 2016-09-02 22:10 | NUR ---
Pt is out in the community little constricted still adjusting in the unit. Pt is compliant and cooperative with the staff. Vital signs are stable c/o no pain. Will continue to monitor the pt overnight.
--- NOTE | 2016-09-03 03:02 | Admission Certification ---
Admission Certification Certification Statement - As attending physician, I certify that at the time of - admission, based on clinical presentation, severity of - symptoms, need for further diagnostic testing and - therapeutic interventions, and risk of adverse outcomes - without in-hospital treatment, in my clinical assessment, - this patient requires an acute hospital stay for a minimum - of two nights or longer. I have also considered psychsocial - factors such as support system, advanced age, financial - issues, cognitive issues, and failed out-patient treatments, - past re-admission history, safety of patient, and lack of - compliance as applicable. Specific rationale supporting this admission is: Suicidal ideation and plan
--- NOTE | 2016-09-03 04:11 | NUR ---
PT APPEARED TO SLEEP. -SI.
[2016-09-03 07:54] VITALS: BP 124/72
[2016-09-03 12:49] VITALS: BP 134/91
--- NOTE | 2016-09-03 13:24 | NUR ---
PT WAS VISIBLE IN THE [facility] TODAY. SHE HAS BEEN ATTENDING GROUPS, AND INTERACTING WITH SOME OF HER PEERS. PT HAS BEEN COOPERATIVE WITH STAFF AND ADJUSTING WELL TO THE [facility]. WHEN ASKED PT DENIES THOUGHTS OF SELF HARM.
--- NOTE | 2016-09-03 14:08 | CPS MD/APRN INITIAL ASSE PSYCH ---
Psychiatric Admission Printing Grey Cloth Tender's Note Reviewed: Yes Patient Seen and Examined: Yes Identifying Information: Patient is a 20-year old single female. Chief Complaint: "I had really bad sucidal thoughts." Reaction to Hospitalization: "I feel pretty good." History of Present Illness Onset of Illness: Patient is a 20-year old single female with a history of MDD, recurrent, severe with anxious distress, previously treated at IOP and OPS , who presented to ED for + SI and plans to OD on pills or sit in the garage inside running car. Patient denied a hx of prior suicide attempts or inpatient psychiatric hospitalizations. Reported recently experiencing increased depression, anxiety, helplessness, fear , decreased appetite, low energy and motivation and sleeping more. Reported primary stressor is school; she is in her senior year at [employer] studying for her degree in psychology. Reported difficulty completing school work secondary to low motivation and energy, and depressive symptoms. Patient denied a recent/past history of impulsive/risky behaviors, racing thoughts, psychotic symptoms, decreased need for sleep, mood swings, and symptoms of teresa/hypomania. Circumstances Leading to Admission: Increased anxiety/depression, suicidal ideation and plan, increased school stress. Problem(s) Justifying Need for Admission: + SI and plans. Past Psychiatric History Past Diagnosis(es)- if any: Major Depressive disorder, recurrent, severe without psychosis, with anxious distress. R/O Bipolar Disorder Past Precipitating Factors- if any: Unknown - Include inpatient and outpatient treatment Treatment History: Prior IOP and OPS [facility] [place] [facility] 8 years prior to IOP/ OPS. Reported past med trials on: Zoloft Abilify -d/c'ed in [facility], and started on Vraylar 1.5mg daily. Unclear if abilify caused akethesia. Xanax History of Suicide Attempts or Gestures Pt denied Substance Abuse History: Pt denied use of illicits, alcohol and tobacco. Allergies: Coded Allergies: No Known Allergies (06/30/16) Home Med List: Vraylar 1.5mg every night Gabapentin 600mg three times daily Celexa 20mg daily Avaine 1 tab daily - Include any medical condition(s) that may - impact the patient's recovery/remission Past Medical History: Pt denied Past History Medical History Neurological: NONE EENT: NONE Cardiovascular: NONE Respiratory: NONE Gastrointestinal: NONE Hepatic: NONE Renal: NONE Musculoskeletal: NONE Psychiatric: anxiety, depression Endocrine: NONE Blood Disorders: NONE Cancer(s): NONE TRIALS MANAGER/Reproductive: NONE History of MRSA: No History of VRE: No History of CDIFF: No Isolation History: Standard Surgical History Surgical History: none Psychiatric Family/Social Hx Family History Psychiatric Illness: Father- anxiety/depression. + effect on Celexa uSshma aunt- anxiety/depression Substance Use: Brother - hx polysubstance abuse. Now sober. Suicides: Patient denied. Social History Living Situation: Lives at home with parents. Significant Relationships (family/friends): Identified her parents as positive supports. Education: Patient enrolled in her last semester at [employer] working toward her bachelors degree in psychology. 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 Currently working at [employer] in a [employer] store. Legal: None reported. Healthly Behaviors Screening Tobacco Screening Tobacco Use from ED Docu: Never used - If tobacco counseling indicated - the following topics are required. - #1 Recognizing dangerous situations. - #2 Coping Skills. - #3 Basic information about quitting. Status of Tobacco Cessation Counseling: N/A B/C NO TOB USE Cessation Med Status: No Tobacco Use last 30d Alcohol Screening - ETOH screen POS if BAL >=80 or Audit-C>= M4/F3 Audit-C Score from Diag Assess: 0 Blood Alcohol Level: Laboratory Tests 09/01 1509 Toxicology Serum Alcohol (<10 MG/DL) < 10.0 Alcohol Use Screening Results: Neg per Audit C &/or BAL - If ETOH counseling indicated - the following topics are required. - #1 Express concern about the patient's - drinking at unhealthy levels, include informing - of national norms for moderate drinking: - men <= 14 drinks/week, max 4 drinks/occasion - women <= 7 drinks/week, max 3 drinks/occasion - #2 Providing feedback, including linking alcohol to - negative physical effects (liver injury, hypertension) - negative emotional effects (relationship problems and - depression) - negative occupational consequences (reduced work - performance) - #3 Advising the patient to abstain from alcohol or - to drink below national norms for moderate drinking - (as listed above). Status of ETOH Use Counseling: N/A B/C NO ETOH Use Metabolic Screening - Screen if on a Neuroleptic Medication - Metabolic screening should include: - Blood Pressure, BMI, Glucose or Hgb A1c, & a - Lipid profile from within the past 365 days. Metabolic Screening () Not Applicable, patient not on a neuroleptic. OR ([X]) Patient on a neuroleptic(s) . Enter below results for Glucose or Hemoglobin A1C, and lipid panel if obtained during the last 365 days. BMI: 35.900 Blood Pressure: 134/91 Laboratory Results (If applicable): Lab Cholesterol 221 MG/DL H 09/01/16 1509 Cholesterol/HDL Ratio 6 % H 09/01/16 1509 Glucose 124 mg/dL H 09/01/16 1509 HDL Cholesterol 39 mg/dL L 09/01/16 1509 LDL Cholesterol, Calc 142 mg/dL H 09/01/16 1509 Triglycerides 203 mg/dL H 09/01/16 1509 Exam and Plan Mental Status Examination Ambulation Status: Steady and independent Appearance: 20y/o CF, appears younger than stated age. Obese, dressed casually. Attitude towards examiner: Cooperative, polite Psychomotor activity: Psychomotor agitation Behavior: fidgety, rapid right foot tapping. Quality of speech: Normal in rate, tone and volume. Affect: Full range Mood: anxious/depressed Suicidal Ideation: Pt denied Homicidal Ideation: Pt denied Hallucinations: Pt denied Paranoid/Delusional Material: None evident Difficulties with thought organization: None evident Insight: Fair Judgment: Fair Orientation: A&Ox4. Cognition: Grossly intact Memory Function: Grossly intact Estimate of intellectual functioning: Above average Assets/Strengths Patient Identified Assets/Strengths: Supportive family, motivated for treatment, employed, college education. Impression/Plan Impression and Plan: Patient is a 20y/o F with a h/o MDD, recurrent,severe, previously graduated IOP and had 1 prior OPS encounter with Kevon Pike APRN, had been prescribed Celexa 20mg (x approx 4 weeks) for anxiety/depression, Vraylar 1.5mg daily for mood stabilization, and Gabapentin 600mg threes times daily for anxiety. No evidence of manic/hypomanic symptoms, symptoms of psychosis, or history of impulsive/ risky behaviors. Unclear why mood stabilizer had been started (? adjuct to SSRI for tx of depression) and will warrant clarification from previous outpatient prescribers, Kevon pike APRN and Anabell Mack APRN. Patient could not recall akethesia from Abilify and denied untoward effects on Vraylar. Reported jitteriness/leg shakiness from possible Celexa. At this time, patient has not responded to Celexa, and is ambivalent about increasing dose. Reviewed the risk/ benefit/SE profiles of Lexapro with the patient who verbalized understanding of med education and was agreeable to switch to Lexapto and discontinuation of Celexa. Patient does not warrant immediate use of mood stabilizer at present, will discontinue Abilify for now. Will continue Gabapentin 600mg TID for anxiety as patient reported positive efficacy of this on anxiety. Will monitor patient response to Lexapro, to start 10mg tomorrow morning (as she already received Celexa dose today). Will gather additional collateral from outpatient providers. Will monitor patient on unit for safety, mood and suicidal ideation. - Include all active medical diagnosis that require tx DSM 5 Diagnosis(es): MDD, recurrent, severe with anxious distress. - Initial Tx Plan for Active Psych & Medical Conditions Treatment Plan: 1. Monitor the patient on unit for safety, mood and suicidal ideation. 2. Continue Gabapentin 600mg TID for anxiety. 3. Discontinue Abilify 5mg daily for now. 4. Gather collateral information for Kevon Pike APRN and Anabell Mack APRN, and patient's family. 5. Discontinue Celexa 20mg daily. Start Lexapro 10mg daily for anxiety/ depression. 6. Once symptoms are clinically stable will refer to [facility] level of care. 7. H&P per office associate team. - Factors that would help patient function - in a less restrictive setting. Factors: Alleviation of SI Stabilization of anxiety/depression
--- NOTE | 2016-09-03 16:01 | SOCIAL WORKER PROG NOTE PSYCH ---
Social Work Progress Note Progress Note Lucía reports feeling better today than she had when she first came in. Rates anxiety at a 6 (10 being worst) and 5 for depression. Talked about depression and anxiety increasing recently. Identified stressor has been completing school. She is due to graduate from [employer] in November with her degree in psychology. She feels alot of pressure about her work load right now. She attends 2 classes a week and has a research project that she will be starting that will require her to be there 2 days a week as well. Lucía also works, reporting that she has 2 jobs. 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 She has [facility]. Feldman and various therapists. Unfortunately she experienced alot of turnover with her therapy and wasn't able to stay with anyone consistently. She recently graduated from [employer] on 08/15 and went to [facility], where she saw Kevon Patel APRN and Madonna Warner CUTTER GRIND TOOL TECHNICIAN. Lucía isn't really interested in returning to [employer], due to just completing it. She is open to a med change here and open for a family meeting. I told her I would call her Mom and arrange a meeting. Left message at parent's home this afternoon.
--- NOTE | 2016-09-03 16:01 | SOCIAL WORKER TX PLAN PSYCH ---
Treatment Plan - Please Document: - Evidence that there is ongoing collaboration between - the patient and the interdisciplinary team, - including the patient's active participation and - responsibility for engaging in the treatment regimen, - and that the treatment plan is individualized and - relevant to the patient's conditions. - Treatment plan should reflect documentation indicating - that all active therapeutic efforts are included. Strengths/Capabilities: The patient appears to have good insight into her need for treatment and is motivated to attend. The patient has a supportive family. Physical Limitations (Interventions): None noted Patient Identified Trmt Goals: "I don't want to have these suicidal thoughts" Discharge Plan: Patient will return to [facility] and to her parents home. Problem/Goals #1 Problem #1: suicidal ideation Goal (Short Term): Patient will attend 75% of groups on unit Goal (Chcf): Patient will be able to identify 2 coping skills and be able to practice them. Interventions: Patient will be offerred medication management with the MATH INTERVENTIONIST, groups on coping skills, symptom management, focus group, relaxation group, self esteem, accupuncture. Otorhinolaryngologist will discuss grounding techniques, reframing negative thoughts. Otorhinolaryngologist will coordinate with family and set up aftercare. DSM5/PS Stressors/Medical Prob Diagnosis' (DSM 5, Stressors, Medical): F32.9 Unspecified Depressive Disorder and F41.9 Unspecified Anxiety Disorder Current GAF: 25 Treatment Team - Responsibilities of members of the treatment team include: - Medication Management- MD or MATH INTERVENTIONIST - Medication Administration and Monitoring- Nurse - Group Therapy- Occupational Therapist - 1:1 Therapy,Disch Planning,family involvement-Otorhinolaryngologist
[2016-09-03 16:28] VITALS: BP 131/70
--- NOTE | 2016-09-03 16:48 | IP INCIDENTAL NOTE PSYCH ---
Incidental Note Notation: Collateral received from Anabell Mack APRN from IOP; per collateral: Patient was treated in IOP from 07/02/16-08/15/16 for primary symptoms of panic attacks, intrusive thoughts to kill herself and thoughts of losing control. Patient has a hx of endorsing intermittent suicidal thoughts since the 8th grade and a hx of cutting. Patient had initially come to [facility] on Zoloft 150mg daily for depression/ anxiety (since 2008) and Xanax 0.25mg prn for panic attacks. Patient was tapered off of Zoloft and started on Celexa (as pt's father had a positive effect from Celexa for anxiety/depression). Patient was additionally started on Abilify daily for intrusive thoughts and suspicion for possible underlying AH/thought blocking/bipolar disorder. Anabell Mack APRN, reported that during the patient's IOP course, there would be instances where the patient's thought process would be delayed; she also reported that the patient's previous prescriber in [place] had recommended a trial of Cass, had prescribed Cass to patient, however the patient's mother did not feel this medication was warranted for symptoms and thus the patient never started Cass trial and treatment with outpatient [place] prescriber was discontinued. Abilify was eventually rescheduled to QPM during IOP, as patient endorsed symptoms of dizziness, blurred vision, feeling spacey, and tiredness. Patient however responded fair to Abilify as intrusive SI lessened. Propranolol 10mg BID was started to counter Abilify SEs. Patient was later switched from Abilify to Vraylar d/t Abilify SEs, and reported tolerating this better than Abilify. Gabapentin was also started at 300mg TID for anxiety, which was later increased by Kevon Pike APRN to 600mg TID at OPS. During IOP course, lab work revealed Vit D and B12 deficiencies. Patient followed up with PCP and was started on VitD 1000 units BID and Vit B12 1000mcg daily. Collateral was received from Kevon Pike APRN from OPS, who met the patient x1 encounter on 08/22/16. Per collateral: Kevon had minimal information to report given having only 1 prior encounter with the patient. He reported the patient was switched from Abilify to Vraylar 1.5mg daily on her last IOP encounter with Anabell Mack APRN. She endorsed constant baseline anxiety and Gabapentin was increased from 300mg TID to 600mg TID. Celexa was maintained at 20mg daily for anxiety/depression. Vraylar 1.5mg was continued for mood stabilization. There were no overt symptoms of psychosis. During this encounter, patient endorsed anxiety of 6/10 (10 being the worst) and depression of 0/10 (10 being the worst) . There were no concerns of SI during this encounter.
[2016-09-03 20:04] VITALS: BP 130/87
--- NOTE | 2016-09-03 21:39 | NUR ---
PT IS CALM, COOPERATIVE WITH STAFF AND PEERS, AND COMPLIANT WITH UNIT RULES. PT IS IN [place], INTERACTING WELL WITH STAFF/PEERS. MOOD IS STABLE, AFFECT IS EUTHYMIC, COMMUNICATION IS NORMAL, AND APPETITE IS NORMAL. PT DENIES SI AT THIS TIME.
[2016-09-04 07:33] VITALS: BP 130/73
--- NOTE | 2016-09-04 11:53 | CP SOUTH PROGRESS NOTE PSYCH ---
Psych (Inpt) Progress Note Progress Note Include the following elements, when applicable: Involvement in the active treatment of the patient with behavioral observations of the patient and the patient's response to the treatment. Review of the ongoing treatment process in the context of the treatment plan. Indication of how multi-disciplinary staff members are carrying out the treatment plan. Plans for future interventions and recommendations for revision of the treatment plan. Liaison with other physicians/providers. Progress Note: [I discussed this patient's progress to date, current mental status, treatment process in the context of the treatment plan, and discharge planning with staff/ team in the daily morning inpatient team meeting. I also met with the patient myself in individual session.] SUBJECTIVE: "I'm so anxious, I'm still having the (suicidal) thoughts" OBJECTIVE: Current Medications Sig/Antolin Start time Last Medication Dose Route Stop Time Status Admin Aripiprazole 5 MG DAILY 09/02 1110 DC PO Cholecalciferol 1,000 IU BID 09/02 1045 AC 09/04 PO 0902 Citalopram 20 MG DAILY 09/02 1058 DC 09/03 Hydrobromide PO 0816 Cyanocobalamin 1,000 MCG DAILY 09/02 1047 AC 09/04 PO 0902 Escitalopram Oxalate 10 MG 0800 09/04 0800 AC 09/04 PO 0902 Ferrous Sulfate 325 MG DAILY 09/03 1000 AC 09/04 PO 0902 Gabapentin 600 MG TID 09/02 1600 AC 09/04 PO 0902 Gabapentin 200 MG Q2P PRN 09/02 1115 AC PO Olanzapine 2.5 MG 0800,2200 09/04 1130 AC PO Patient Own 1 UNIT 2100 09/02 2100 AC 09/03 Medication PO 2045 Vital Signs Date Time Temp Pulse Resp B/P Pulse O2 O2 Flow FiO2 Ox Delivery Rate 09/04 0733 97.8 86 130/73 09/03 2004 98.7 84 130/87 09/03 1628 84 131/70 09/03 1249 83 134/91 ASSESSMENT: Chart, progress notes, VS, labs, and medication list reviewed. Met with the patient, her mother Monique Heterence MOSS together for a family meeting. The patient's treatment progress and history, medication regimen, level of safety, and tentative discharge planning were reviewed and discussed. The patient's mother reported the patient having a history of suicidal thoughts (no prior attempts), anxiety and depression, separation anxiety, limited social quechan, and being passive in nature. Reported noticing major changes in the patient's mood/thought process since May 2016. Patient became more distractable, having more frequent intrusive suicidal thoughts, intense anxiety, more isolative behaviors/social withdrawal, neglecting her appearance, decreased energy/increased fatigue, loss of interest, decreased motivation, and would not drive d/t anxiety attacks (? prodromal psychosis). Patient denied a history of AVH, delusions, paranoia. However, per collateral from patient's former IOP provider, Anabell Mack APRN, there was speculation of possible thought blocking and auditory hallucinations versus intrusive thoughts during IOP treatment course. Educated patient and her mother on the use of Zyprexa as an off-label treatment for anxiety, in addition to its efficacy as a mood stabilizer and for clear thoughts. Patient's mother and the patient verbalized understanding of the risks/benefit/SE profiles of Zyprexa including metabolic risks, sedation, and low risk for movement disorders. Patient and patient's mother were agreeable to Zyprexa trial. Please see Monique William NISSAN SALES CONSULTANT's note for additional information on family meeting. Today, the patient presented A&Ox3. Affect was flat. Speech was normal in rate, tone and volume. Eye contact was mostly good. Mood was "very anxious." She reported passive intrusive sucidal ideation. She denied suicidal plans/intent. She denied homicidal ideation. Thought process appeared somewhat distracted likely secondary to intrusive thoughts. She denied overt symptoms of paranoia and delusions. Thought content was appropriate. Cognition appeared grossly intact. Patient agreeable to continue Lexapro 10mg daily and denied untoward medication effects. She further remained agreeable to trial low dose Zyprexa 2.5mg BID for clear thoughts and mood stabilization. IMPRESSION: MDD, recurrent, severe with anxious distress R/O MDD, recurrent, severe with psychotic features. PLAN: 1. Continue monitoring the patient on unit for safety, suicidal ideation, and ? psychosis. 2. Continue Lexapro 10mg daily. 3. Start Zyprexa 2.5mg BID for clear thoughts/mood stabilization. 4. Dispo planning per primary team.
--- NOTE | 2016-09-04 12:01 | SOCIAL WORKER PROG NOTE PSYCH ---
Social Work Progress Note Progress Note Lucía was able to have her Mom come in for a 10:30am family meeting today. Mother is a nurse in the [employer]. Mrs. Barcenas shared that Lucía has had problems since childhood with anxiety. Reported her struggle to get her to school daily and to get on the bus. Despite some of these issues she has managed fairly well over the past several years and reports that she saw something "snap" with her in [facility]. She said it was like she was seeing a totally different person. She describes her as having no attention to self-care , sleeping alot, isolating, increased depression and anxiety. There were a couple of changes that happened in May. She and a boyfriend broke up. She was seeing this person for a month and doesn't describe the relationship as significant, but Mom feels it was a loss due to being envious of her best friend and how she is in a jail relationship. She misses being with her friend Kecia more regularly and feels like a "third wheel" at times. She had a change in control pills and was off the pill for about a week. She doesn't know if the change has effected her hormones. Asked Mom about family history of mental illness. Mom shared that Dad is a very anxious person and doesn't interact alot socially. He has been on antidepressants in the past. Mom doesn' t take medication. There is a strong history of alcoholism on Dad's side of the family. Lucía doesn't use drugs or drink. Her Brother is a severe addict. Mom seems very supportive and willing to do whatever she can to help Lucía feel better. Lucía was very tearful at the meeting. She reports SI today. Talked about how she has no desire to act on the thoughts, but very scared that she would at some point. This terrifies her. She feels alone, as if she is the only one that experiences these things. Assured her that others share these thoughts and she is not alone. Talked about the importance of IOP for aftercare. 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 Mom was disappointed with the fact that she had a 2 week gap inbetween IOP and OPS and would like there to be less of a gap. I told her I could talk to [facility] about that. Rakel felt that she benefited and did better at IOP, so she seemed open to the idea of returning. Hillary discussed medications to help her with her intrusive thoughts. Rakel agreed to start a trial of Zyprexa. Strongly encouraged to share how she is feeling on the medication. Discussed coping skills such as grounding techniques to start utilizing to distract from thoughts.
[2016-09-04 12:24] VITALS: BP 121/68
--- NOTE | 2016-09-04 14:02 | NUR ---
PT IS COMPLIANT AND COOPERATIVE. MOOD IS STABLE WITH A CONSTRICTED AFFECT. PT EXPRESSED PASSIVE SI DURING 0800 VITALS- HAS NO PLAN AND FEELS SAFE HERE,WILL NOTIFY STAFF IF THIS CHANGES. PT IS PRESENT IN THE COMMUNITY AND HAS SOME INTERACTION WITH PEERS AND STAFF. PT IS ATTENDING GROUPS. VITALS ARE STABLE, APPETITE IS GOOD.
[2016-09-04 16:19] VITALS: BP 144/78
[2016-09-04 20:12] VITALS: BP 132/73
--- NOTE | 2016-09-04 21:16 | NUR ---
PT IS CALM, COOPERATIVE WITH STAFF AND PEERS, AND COMPLIANT WITH UNIT RULES. PT IS OFTEN IN [place], INTERACTING WELL WITH OTHERS, WELL HAVING ENJOYED A VISIT FROM FAMILY MEMBERS THIS EVENING. PT MOOD IS STABLE, AFFECT IS EUTHYMIC, COMMUNICATION IS NORMAL, AND APPETITE IS NORMAL. PT DENIES SI AT THIS TIME.
[2016-09-05 08:03] VITALS: BP 132/75
--- NOTE | 2016-09-05 08:54 | CP SOUTH PROGRESS NOTE PSYCH ---
See Addendum Psych (Inpt) Progress Note Progress Note Include the following elements, when applicable: Involvement in the active treatment of the patient with behavioral observations of the patient and the patient's response to the treatment. Review of the ongoing treatment process in the context of the treatment plan. Indication of how multi-disciplinary staff members are carrying out the treatment plan. Plans for future interventions and recommendations for revision of the treatment plan. Liaison with other physicians/providers. Progress Note: [I discussed this patient's progress to date, current mental status, treatment process in the context of the treatment plan, and discharge planning with staff/ team in the daily morning inpatient team meeting. I also met with the patient myself in individual session.] SUBJECTIVE: "Today isn't so bad." OBJECTIVE: Current Medications Sig/Antolin Start time Last Medication Dose Route Stop Time Status Admin Cholecalciferol 1,000 IU BID 09/02 1045 AC 09/04 PO 2118 Cyanocobalamin 1,000 MCG DAILY 09/02 1047 AC 09/04 PO 0902 Escitalopram Oxalate 10 MG 0800 09/04 0800 AC 09/04 PO 0902 Ferrous Sulfate 325 MG DAILY 09/03 1000 AC 09/04 PO 0902 Gabapentin 600 MG TID 09/02 1600 AC 09/04 PO 2118 Gabapentin 200 MG Q2P PRN 09/02 1115 AC PO Olanzapine 2.5 MG 0800,0 09/04 1130 AC 09/04 PO 2119 Ondansetron HCl 4 MG Q8P PRN 09/04 1430 AC 09/04 PO 1425 Patient Own 1 UNIT 2100 09/02 2100 AC 09/04 Medication PO 2117 Vital Signs Date Time Temp Pulse Resp B/P Pulse O2 O2 Flow FiO2 Ox Delivery Rate 09/05 0803 96.7 77 132/75 09/04 2011 96.6 81 132/73 09/04 1619 83 144/78 09/04 1224 79 121/68 ASSESSMENT: Chart, progress notes, VS, labs and medication list were reviewed. Met with the patient today, who appeared tired and oriented to person, place and time. Appeared better adjusted to unit than previously and reported attending and participating in milieu groups. Speech was normal in rate, tone and volume. Eye contact was minimal. Affect was constricted. Patient reported her mood as a "little better." She reported sleeping well and having a good appetite. Patient reported some sedation from afternoon dose of Zyprexa 2.5mg yesterday. Reviewed with patient that that is an anticipated SE and will likely subside as she adjusts to medication. Reviewed with patient that if she remains tired on this morning dose, Zyprexa can be rescheduled at bedtime. She denied acute untoward medication effects. She reported having a bout of nausea yesterday, but did not attribute this to start of Zyprexa. Patient reported that when she gets "very nervous" she frequently experiences nausea. She denied episodes of vomiting and reported nausea subsided after receiving prn dose of zofran. Patient reported improved depression of 4/10 (10 being the worst) and anxiety of 3-4/10 (10 being the worst). She denied racing thoughts. She reported decreased intrusive suicidal thoughts. She denied endorsing active and passive suicidal ideation this morning and last night. She denied plans or intent. She denied homicidal ideation. She denied auditory and visual hallucinations. Thought process appeared less distracted than yesterday. No thought blocking evident. There was no evidence of internal stimulation, paranoia or oskar delusions. Patient expressed her primary concern about returning home is how she will motivate herself to accomplish her goals such as attending work, school, and occupying herself when feeling bored. We discussed the pros/cons to restructuring her schedule once discharged and discussed the option of taking a temporary leave from college/work to focus primarily on her treatment. Patient express concerns about taking leave from school as she remains focused on finishing school. Patient however was duran to comprehend that if she took a temporary leave from school, she would later be able to return when feeling more functional to graduate. Patient was agreeable to transition from inpatient hospitalization to [facility] level of care post-discharge. She was able to identify the benefit of stepping down into this level of care and how it would provide her with more support versus traditional outpatient care. Patient reported tolerating all medications fairly well and denied acute untoward medication effects. Will continue present medications. PLAN: 1. Continue current medications. If patient continues to feel sedated on Zyprexa 2.5mg QAM, adjust 2.5mg BID dose to 5mg QHS for mood stabilization/intrusive thoughts. 2. Continue monitoring the patient on unit for safety, suicidal ideation, mood and ? psychosis. 3. Continue Lexapro 10mg daily. 4. Continue all other medications. 5. Dispo planning per primary team.
[2016-09-05 12:21] VITALS: BP 138/93
--- NOTE | 2016-09-05 14:06 | SOCIAL WORKER PROG NOTE PSYCH ---
Social Work Progress Note Progress Note Rakel presented as extremely fatigued when I met with her this afternoon. She had taken her first dose of Zyprexa today. She had just taken a nap, but clearly looked quite sedated. Talked about the family meeting yesterday with her Mom. She felt it went well and expressed how much she realizes her Mom supports her. She expressed fears about returning [place] and having the same intensity in SI that she had prior to coming in. We talked about what she would do if she did. She said she would talk to her parents. We talked about trying to implement more positive thoughts throughout the day and how to reframe negative thoughts. Talked about how our thinking influences our emotions. Talked about returning to [facility] for a few weeks. I told her I would speak further with the team and see what day we will plan for early next week. Planned tentative intake to [facility] for Thursday at 9:30am. Review done with [employer]. Authorization needed to change for her stay here , due to a mistake from initial auth. New auth # is [id number]. Additional days approved for - with review on the .
--- NOTE | 2016-09-05 14:46 | NUR ---
PT IS COMPLIANT AND COOPERATIVE. MOOD IS STABLE WITH A FLAT AFFECT. PT DENIES SI AT THIS TIME, C/O ANXIETY. PT APPEARS DROWSY- STATED HER MEDS ARE MAKING HER TIRED. PT HAS BEEN WITHDRAWN AND SLEEPING IN ROOM MUCH OF DAY. PT INTERACTING WITH PEERS AND STAFF WHEN ON UNIT. PT IS ATTENDING SOME GROUPS. VITALS ARE STABLE, APPETITE IS GOOD.
[2016-09-05 16:15] VITALS: BP 138/78
[2016-09-05 19:46] VITALS: BP 134/76
--- NOTE | 2016-09-05 21:12 | NUR ---
Pt is out in the lounge area affect is flat seen interacting with her peers during the shift. Pt is compliant and cooperative with the staff. Vital signs are stable c/o no pain, appetite is good. Will continue to monitor the pt overnight.
--- NOTE | 2016-09-06 04:16 | NUR ---
SLEPT WELL NO ISSUES.
[2016-09-06 08:02] VITALS: BP 133/86
--- NOTE | 2016-09-06 11:43 | CP SOUTH PROGRESS NOTE PSYCH ---
Psych (Inpt) Progress Note Progress Note Include the following elements, when applicable: Involvement in the active treatment of the patient with behavioral observations of the patient and the patient's response to the treatment. Review of the ongoing treatment process in the context of the treatment plan. Indication of how multi-disciplinary staff members are carrying out the treatment plan. Plans for future interventions and recommendations for revision of the treatment plan. Liaison with other physicians/providers. Progress Note: Notes reviewed, d/w nursing staff. Interviewed patient this morning. Lucía reports feeling well this morning. Says that zyprexa was initially quite sedating for her but moving to nighttime has been helpful. Looking forward to discharge soon. Reports mood is "good", denies AVH, eating/drinking well. LAbs/vitals rev'd wnl. MSE: well-appearing appropriately groomed CF, cooperative with interview, good EC, no abn mvmts. Speech wnl. Mood "good". Affect euthymic, full range, congruent, non-labile. TP log/lisandro. TC wnl. Denies SI/HI. Denies AVh. Cognition grossly intact. I/J fair. A/P: Continue present management as per primary team.
[2016-09-06 11:57] VITALS: BP 134/67
--- NOTE | 2016-09-06 13:46 | NUR ---
PT WAS VISIBLE MOST OF THE DAY IN THE MILIEU. IN PLANNING MEETING, PT CAME UP WITH HER GOAL WHICH WAS TO "STAY POSITIVE". SHE IS QUIET, BUT INTERACTS WELL ON A ONE ON ONE LEVEL. IN FOCUS GROUP, PT COMPLETED HER VISION BOARD AND WAS ABLE TO SHARE IT WITH HER PEERS. SHE HAS BEEN COOPERATIVE WITH STAFF. PT DENIES THOUGHTS OF HURTING SELF WHEN ASKED.
[2016-09-06 15:39] VITALS: BP 127/83
[2016-09-06 19:26] VITALS: BP 138/67
--- NOTE | 2016-09-06 20:22 | NUR ---
PT IS STABLE WITH A BRIGHTER AFFECT THAN PRIOR. VISITED WITH MOTHER AND FATHER FOR MOST OF THE EVENING SHIFT. PT SEEN SMILING AND LAUGHING WITH FAMILY AND PEERS. OUT IN THE COMMUNITY FOR THE ENTIRE EVENING SHIFT. PT IS STUDYING AND READING A BOOK FROM SCHOOL THAT SHE REPORTS IS "KEEPING MY MIND OFF NEGATIVE THINGS". PT ENCOURAGED TO CONTINUE READING TEXTBOOK. VS ARE STABLE AND DENIES ANY SI/HI TO THIS MHW.
--- NOTE | 2016-09-07 06:35 | NUR ---
PT APPEARED TO SLEEP. SHE STATES SHE IS LESS DEPRESSED, LESS ANXIOUS.
[2016-09-07 07:52] VITALS: BP 134/83
[2016-09-07 12:09] VITALS: BP 132/72
--- NOTE | 2016-09-07 13:40 | CP SOUTH PROGRESS NOTE PSYCH ---
Psych (Inpt) Progress Note Progress Note Include the following elements, when applicable: Involvement in the active treatment of the patient with behavioral observations of the patient and the patient's response to the treatment. Review of the ongoing treatment process in the context of the treatment plan. Indication of how multi-disciplinary staff members are carrying out the treatment plan. Plans for future interventions and recommendations for revision of the treatment plan. Liaison with other physicians/providers. Progress Note: Notes reviewed, d/w nursing staff. Interviewed patient this morning. Lucía remains in fine fettle today. Looks forward to leaving [facility] soon. Denies SI/HI/ dep mood/insomnia/med SEs/overt AVH. Labs/vitals rev'd wnl. MSE: well-appearing appropriately groomed CF, cooperative with interview, good EC, no abn mvmts. Speech wnl. Mood "really good". Affect euthymic, full range, congruent, non-labile. TP log/lisandro. TC wnl. Denies SI/HI. Denies AVh. Cognition grossly intact. I/J fair. A/P: Continue present management as per primary team.
--- NOTE | 2016-09-07 14:13 | NUR ---
PT WAS IN AND OUT OF THE MILIEU TODAY. HER GOAL WAS TO BE POSITIVE, AND PT HAS BEEN MEETING HER GOAL. PT APPEARS TO BE A LOT LESS ANXIOUS TODAY, AND IN A BETTER PLACE. PT SHARED WITH THIS MHW SHE IS LOOKING FORWARD TO DISCHARGE, AND HOPING FOR IT TO BE TOMORROW. IN THE MILIEU PT ATTENDED PLANNING MEETING, BUT NOT FOCUS GROUP. PT SHARED THAT SHE WAS TOO TIRED AT THE TIME AND THATS WHY SHE DID NOT GO. PT IS CURRENTLY IN THE KITCHEN WITH A VISIT FROM HER DAD AND FRIEND. PT DENIES HAVING THOUGHTS TO HURT SELF WHEN SHE WAS ASKED TODAY.
[2016-09-07 15:42] VITALS: BP 120/78
[2016-09-07 19:42] VITALS: BP 128/69
--- NOTE | 2016-09-07 21:22 | NUR ---
PT IS BRIGHT, STABLE, FULL RANGE OF AFFECT. PT SHOWS NO SIGNS/SYMPTOMS OF DEPRESSION OR SI THOUGHTS. PT HAS BEEN VISITING WITH FAMILY AND FRIENDS ALL EVENING SHIFT AND REPORTS LOOKING FORWARD TO GOING BACK TO SCHOOL "HOPEFULLY THURSDAY". PT IS ANTICIPATING EARLY DC THIS WEEK (HOPEFULLY THURSDAY SHE REPORTED). PT IS FILLING OUT DC HOMEWORK CURRENTLY. PLESANT AND COOPERTATIVE. VS ARE STABLE AND DENIES ANY SI/HI TO THIS MHW.
--- NOTE | 2016-09-08 06:07 | NUR ---
PATIENT SLEPT ALL NIGHT.
[2016-09-08 08:03] VITALS: BP 138/68
[2016-09-08 08:09] VITALS: BP 138/68
--- NOTE | 2016-09-08 08:26 | NUR ---
PT STATES SHE WILL BE DISCHARGED TODAY. SHE REPORTS AND DEMONSTRATES IMPROVEMENT IN HER MOOD AND ABILITY TO FUNCTION. SHE EXHIBITS FULL RANGE OF AFFECT AND WHEN ASKED SHE DENIES ANY THOUGHT OF SUICIDE OR SELF HARM. SHE EXPECTS TO FOLLOW UP WITH OUT PT OR [facility]. SHE WILL CONFIRM WITH PHARMACY RETAIL SUPPORT SPECIALIST TODAY. PT IS GIVEN EDUCATION R/T MANAGIND DEPRESSUION AND SUICIDE PREVENTION
[2016-09-08] MEDS ORDERED: OLANZAPINE5 M2 PO (10:40)
[2016-09-08] MEDS ORDERED: GABAPENTIN600 M1 PO (10:40)
[2016-09-08] MEDS ORDERED: LEXAPRO10 M1 PO (10:40)
--- NOTE | 2016-09-08 11:39 | CP SOUTH PROGRESS NOTE PSYCH ---
Psych (Inpt) Progress Note Progress Note Include the following elements, when applicable: Involvement in the active treatment of the patient with behavioral observations of the patient and the patient's response to the treatment. Review of the ongoing treatment process in the context of the treatment plan. Indication of how multi-disciplinary staff members are carrying out the treatment plan. Plans for future interventions and recommendations for revision of the treatment plan. Liaison with other physicians/providers. Progress Note: [I discussed this patient's progress to date, current mental status, treatment process in the context of the treatment plan, and discharge planning with staff/ team in the daily morning inpatient team meeting. I also met with the patient myself in individual session.] SUBJECTIVE: "I feel a lot better." OBJECTIVE: Current Medications Sig/Antolin Start time Last Medication Dose Route Stop Time Status Admin Calcium Carbonate 500 MG Q8P PRN 09/06 2230 AC 09/07 PO 1656 Cholecalciferol 1,000 IU BID 09/02 1045 AC 09/08 PO 0858 Cyanocobalamin 1,000 MCG DAILY 09/02 1047 AC 09/08 PO 0858 Escitalopram Oxalate 10 MG 0800 09/04 0800 AC 09/08 PO 0858 Ferrous Sulfate 325 MG DAILY 09/03 1000 AC 09/08 PO 0858 Gabapentin 600 MG TID 09/02 1600 AC 09/08 PO 0858 Gabapentin 200 MG Q2P PRN 09/02 1115 AC PO Olanzapine 5 MG 2200 09/06 2200 AC 09/07 PO 2130 Ondansetron HCl 4 MG Q8P PRN 09/04 1430 AC 09/04 PO 1425 Patient Own 1 UNIT 2100 09/02 2100 AC 09/07 Medication PO 2131 Vital Signs Date Time Temp Pulse Resp B/P Pulse O2 O2 Flow FiO2 Ox Delivery Rate 09/08 0809 99.8 91 138/68 09/08 0803 98.8 91 138/68 09/07 1942 97.3 97 128/69 09/07 1542 99 120/78 09/07 1209 87 132/72 ASSESSMENT: Met with patient today, on the date of discharge. Patient appeared alert and oriented to person, place, time and situation. Speech was normal in rate, tone and volume. Eye contact was good. She reported feeling "happy and a lot better. " Affect was brighter and full range. She reported improved motivation. She reported depression of 0/10 (10 being the worst) and anxiety of 3/10 (10 being the worst). She denied feeling hopeless, helpless, and worthless. She denied passive and active suicidal ideation, plans and intent. She denied homicidal ideation. She stated and also believed she will not harm herself or others. She denied racing and intrusive thoughts. She reported sleep and appetite were very good. She denied auditory and visual hallucinations. Thought process was linear and goal-directed. Thought content was appropriate. Cognition was grossly intact. She was future-oriented to follow up with [facility] and to resume her final semester at college. The patient reported tolerating all medications well and denied untoward medication effects. She reported feeling safe and ready for discharge. PLAN: 1. Discharge today into the care of family. Patient will return to home/family. 2. F/u with [facility] intake on 09/09/16 at 9:30AM. 3. All discharge prescriptions were printed, reviewed with patient and provided to patient on discharge. Patient reported having an adequate supply of Vit D3, ferrous sulfate, Vit B12 and oral contraceptive at home. 4. In the event of an emergency, call 911/go to nearest emergency department. Patient verbalized understanding of all instructions.
[2016-09-08 12:04] VITALS: BP 135/66
--- NOTE | 2016-09-08 12:27 | DISCHARGE SUMMARY REPORT-PSYCH ---
Visit Information Visit Dates/Diagnosis' Admission Date: 09/02/16 Discharge Date: 09/08/16 Reason for Admission: +SI Psy Discharge Primary Diag: MDD, recurrent, severe with anxious distress Psy Discharge Secondary Diag: R/O MDD, recurrent, severe with psychotic features ; Hx Vitamin D deficiency Hospital Course Significant Lab Findings: Lab Cholesterol 221 MG/DL H 09/01/16 1509 Cholesterol/HDL Ratio 6 % H 09/01/16 1509 HDL Cholesterol 39 mg/dL L 09/01/16 1509 LDL Cholesterol, Calc 142 mg/dL H 09/01/16 1509 Triglycerides 203 mg/dL H 09/01/16 1509 Urine Test NEGATIVE 09/01/16 1335 Course Complications: None. Consultations: The patient was seen for admission history and physical by revenue specialist Dr. Ramin French. Please see MD note for additional information. Allergies: Coded Allergies: No Known Allergies (06/30/16) Hospital Course/TX Response: The patient was monitored on the unit for safety, suicidal ideation, mood and ? psychosis. She participated in multimodal treatments on the unit. Outpatient psychiatric medications of Vraylar 1.5mg every night and Celexa 20mg daily were discontinued. Gabapentin 600mg three times daily prn was rescheduled to three times daily for anxiety. Lexapro 10mg was started daily for anxiety/depression. Zyprexa 2.5mg twice daily was started off-label for anxiety/intrusive thoughts and questionable underlying psychosis. Patient appeared sedated on Zyprexa 2.5mg twice daily which was rescheduled to 5mg at bedtime with good effect. The patient resumed home medications of Avaine 1 tab daily for oral contraception and Vitamin B12, Vitamin D3, and ferrous sulfate for vitamin support. The patient tolerated all medications well and denied untoward medication effects. During the hospital course, the patient's mood, affect, and intrusive thoughts improved. Suicidal ideation remitted. A family meeting was held with the patient , her mother Monique Lewis LCSW, and this film writer. The patient's treatment progress, psychiatric history, medication regimen, level of safety and discharge planning were reviewed. The patient's mother and the patient were in favor of after care plan to follow-up at [facility] for continued psychiatric symptom and medication management. On the date of discharge, 09/08/16, the patient appeared alert and oriented to person, place, time and situation. Speech was normal in rate, tone and volume. Eye contact was good. She reported feeling "happy and a lot better." Affect was brighter and full range. She reported improved motivation. She reported depression of 0/10 (10 being the worst) and anxiety of 3/10 (10 being the worst) . She denied feeling hopeless, helpless, and worthless. She denied passive and active suicidal ideation, plans and intent. She denied homicidal ideation. She stated and also believed she will not harm herself or others. She denied racing and intrusive thoughts. She reported sleep and appetite were very good. She denied auditory and visual hallucinations. Thought process was linear and goal- directed. Thought content was appropriate. Cognition was grossly intact. She was future-oriented to follow up with [facility] and to resume her final semester at college. The patient reported tolerating all medications well and denied untoward medication effects. She reported feeling safe and ready for discharge. Discharge HBIPS - Tobacco Use Treatment Offered Post DC Medications Offered: NA-No Tob Use >30 days Post DC Tobacco Treatment Plan: NA-No Tobacco use >30days - EtOH/Drug Use D/O Treatment Offered Post DC Medications Offered: NA-No EtOH/Drug Use D/O Post DC EtOH/SubAbuse [place] Plan: NA-No EtOH/Drug Use D/O Metabolic Screening - Screen if on a Neuroleptic Medication - Metabolic screening should include: - Blood Pressure, BMI, Glucose or Hgb A1c, & a - Lipid profile from within the past 365 days. Metabolic Screening () Not Applicable, patient not on a neuroleptic. OR ([X]) Patient on a neuroleptic(s) . Enter below results for Glucose or Hemoglobin A1C, and lipid panel if obtained during the last 365 days. BMI: 35.900 Blood Pressure: 135/66 Laboratory Results (If applicable): Lab Cholesterol 221 MG/DL H 09/01/16 1509 Cholesterol/HDL Ratio 6 % H 09/01/16 1509 Glucose 124 mg/dL H 09/01/16 1509 HDL Cholesterol 39 mg/dL L 09/01/16 1509 LDL Cholesterol, Calc 142 mg/dL H 09/01/16 1509 Triglycerides 203 mg/dL H 09/01/16 1509 Discharge Instructions General Discharge Information Discharge Medications: Discharge Medications- (Dose, route, freq, indication): HOME MEDICATION LIST START taking these NEW Home Medications: Gabapentin Dose: ORAL, THREE TIMES DAILY Qty: 42 Printed (Gabapentin) 600 MG 600 Milligram for anxiety Refills: 0 TABLET Last Taken:09/08/16 Time:0900 Escitalopram Oxalate Dose: ORAL, DAILY @8 AM for Qty: 14 Printed (Lexapro) 10 MG 10 Milligram depression/anxiety Refills: 0 TABLET Last Taken:09/08/16 Time:0900 Olanzapine Dose: ORAL, 2200 for mood Qty: 14 Printed (Olanzapine) 5 MG 5 Milligram stability/clear thoughts Refills: 0 TABLET Last Taken:09/07/16 Time:2129 CONTINUE taking these Home Medications: Cholecalciferol (Vitamin Dose: ORAL, TWICE DAILY for D3) 1,000 UNIT TABLET 1 Tablet SUPPLEMENT Last Taken:09/08/16 Time:0900 Cyanocobalamin (Vitamin Dose: ORAL, DAILY for B-12) 1,000 MCG TABLET 1 Tablet SUPPLEMENT Last Taken:09/08/16 Time:0900 Ferrous Sulfate (High Dose: ORAL, for SUPPLEMENT Potency Iron) 134 MG (27 1 Tablet Last Taken:09/08/16 MG) TABLET Time:0900 Levonorgestrel-Ethin Dose: ORAL, DAILY for BC Estradiol (Aviane-28 1 Tablet Tablet) 0.1 MG-20 MCG TABLET [AVAINE] Dose: , for CONTROL Last Taken:09/07/16 Time:2129 STOP taking these DISCONTINUED Home Medications: Citalopram Hydrobromide Dose: ORAL, DAILY for MENTAL HEALTH (Citalopram HBr) 20 MG TABLET 1 Tablet Reason Stopped: Per Doctor Decision Cariprazine HCl (Vraylar) 1.5 Dose: ORAL, Every night for DEPRESSION MG CAPSULE 1.5 Milligram Reason Stopped: Per Doctor Decision Multiple Neuroleptics: ([X]) Not Applicable OR Document below three failed attempts at monotherapy, or a plan to taper to monotherapy, or augmentation of Clozapine. () Patient's Diet: Regular. Patient's Activity: No restrictions. DC Disposition: To return to home and family. Recommendations: The patient was advised to please take medications as prescribed. She was advised to follow-up with her PCP for elevated cholesterol and triglycerides. She was advised to follow-up with [facility] intake on 09/09/16 at 9:30AM. Former IOP provider, Anabell Mack APRN, was notified of the patient's updated medication regimen and that she would be discharged with follow-up at [facility] for intake. Former OPS provider, Kevon Pike APRN, was also notified that the patient would be returning to [facility] for intake. The patient was advised that in the event of an emergency, to call 911/go to nearest emergency department. Patient verbalized understanding of all instructions. Referred To: [facility] [address] [place] [address] [phone])[phone] Intake appointment scheduled on 09/09/16 at 9:30AM. Copies To: [facility]
--- NOTE | 2016-09-08 12:58 | SOCIAL WORKER PROG NOTE PSYCH ---
Social Work Progress Note Progress Note Lucía reports feeling 200% better. Denies any SI and states mood is good. She feels ready to discharge today. Reports spending time with family over the weekend and having a good visit with parents. Informed her that I scheduled her IOP intake for 9:30am tomorrow. She didn't feel that was a problem to get to tomorrow. Called to arrange for a ride for 2pm today. I wrote a letter per Lucía's request, stating she was here for purposes of missing school.
== END 2016-09-08 14:02 | DRG 885 ==
LOC: ENRESERVDT → ENRESERVTM → CANRESERV → ERH 13:12 → CP SOUTH 09-02 10:11 → ENPENDDIS 09-02 10:11 → ERHI 09-02 10:11 → EDBEDREQ 09-02 11:37 → CP SOUTH 09-02 14:49
PROVIDERS: Emergency Medicine; ADMIT Psychiatry & Neurology Psychiatry
DX: F33.9 Major depressive disorder, recurrent, unspecified (principal)
CPT/HCPCS: 80307; 81025; G0463; G0480; J3101